=== PATIENT | female | born 1960 | race Caucasian/White ===

== ENCOUNTER 2020-06-16 14:40 | Emergency (ER) | payer MEDICAID ==
[~2020-06-16] VITALS: Ht 165.1 cm; Wt 90.7 kg
[2020-06-16 15:04] VITALS: BP 156/88
--- NOTE | 2020-06-16 16:23 | NUR ---
Patient discharged to home in stable condition. Written and verbal after care instructions given. Patient verbalizes understanding of instruction. x-ray cd provided to patient.
== END 2020-06-16 16:23 | disposition home or self-care (01) ==
LOC: ER 14:45
DX: U07.1 COVID-19 (principal); E11.9 Type 2 diabetes mellitus without complications; E78.5 Hyperlipidemia, unspecified; I10 Essential (primary) hypertension; G43.909 Migraine, unspecified, not intractable, without status migrainosus; Z98.890 Other specified postprocedural states
CPT/HCPCS: 71045-TC